=== PATIENT | male | born 1970 | race Caucasian/White ===

== ENCOUNTER 2016-04-16 02:02 | Emergency (ER) | payer OTHER ==
[~2016-04-16] VITALS: Ht 180.3 cm; Wt 104.5 kg
[~2016-04-16 02:02] MED LIST: ASPIR 8181 M1 PO; ASPIR-TRIN325 M1 PO; DEPAKOTE500 MG PO; DILANTIN BRAND100 MG PO; DILANTIN100 MG PO; INDOCIN25 MG PO; OMEPRAZOLE40 M1 PO; OMNICEF300 M1 PO; OXYCODONE HCL5 MG PO; PREDNISONE10 M1 PO; PREDNISONE50 MG PO; TESSALON PERLE100 MG PO; VICODIN ES 71 TABLET PO; VITAMIN D5000 INTUN PO; ZOLOFT100 MG; ZOLOFT100 MG PO; Zoloft PO
[2016-04-16] MEDS ORDERED: NORCO 5/3251 TABLET PO (03:28)
[2016-04-16 04:02] VITALS: BP 123/74
== END 2016-04-16 04:15 | disposition home or self-care (01) ==
LOC: EME 02:02
PROC: 0HQ0XZZ Repair Scalp Skin, External Approach (ICD-10-PCS; principal; 2016-04-16)
DX: S09.90XA Unspecified injury of head, initial encounter (principal); S01.01XA Laceration without foreign body of scalp, initial encounter; S40.011A Contusion of right shoulder, initial encounter; W00.0XXA Fall on same level due to ice and snow, initial encounter
CPT/HCPCS: 70450; 72125; 73030; 73080; 73090; 99281; 99284

== ENCOUNTER 2017-08-18 16:37 | Observation (INO) | payer OTHER ==
[~2017-08-18] VITALS: Ht 182.9 cm; Wt 107.2 kg
[~2017-08-18 16:37] MED LIST changes: +NORCO 5/3251 TABLET PO
[2017-08-18 17:35] LABS: BASOPHIL (%) 0.4 % (0-1); EOSINOPHIL (%) 1.2 % (0-5); EOSINOPHIL COUNT 0.1 K/uL (0-0.3); HEMATOCRIT 40.8 % (38.0-50.0); HEMOGLOBIN 14.4 G/DL (12.5-16.6); IMMATURE GRANULOCYTE (%) 0.3 % (0.0-0.7); LYMPHOCYTE (%) 14.7 % (15-42); LYMPHOCYTE COUNT 1.5 K/uL (1.0-2.8); MCH 31.9 PG (29.0-34.0); MCHC 35.3 G/DL (30.0-36.0); MCV 90.5 FL (86-99); MONOCYTE (%) 5.8 % (3-12); MONOCYTE COUNT 0.6 K/uL (0-0.8); NEUTROPHIL (%) 77.6 % (45-76); NEUTROPHIL COUNT 7.8 K/uL (1.8-6.4); PLATELET COUNT 167 K/uL (156-360); RBC DIS.WIDTH-CV 12.1 % (11.8-14.6); RED BLOOD COUNT 4.51 M/uL (4.00-5.50)
[2017-08-18 17:43] LABS: ALBUMIN 4.3 g/dL (3.2-4.8); CHLORIDE 104 mEq/L (99-109)
[2017-08-18 17:44] LABS: POTASSIUM 3.6 mEq/L (3.7-5.4); SODIUM 139 mEq/L (136-147)
[2017-08-18 17:46] LABS: GLUCOSE 91 mg/dL (70-99); TOTAL PROTEIN 7.2 g/dL (6.4-8.3)
[2017-08-18 17:48] LABS: TOTAL BILIRUBIN 0.4 mg/dL (0.0-1.0)
[2017-08-18 17:49] LABS: ALKALINE PHOSPHATASE 157 IU/L (3-129); CREATININE 0.7 mg/dL (0.6-1.3); GFR ESTIMATE (CALCULATED) > 59 mL/min/ (58.99-99999)
[2017-08-18 17:51] LABS: AST (GOT) 20 IU/L (2-34); UREA NITROGEN (BUN) 11 mg/dL (9-23)
[2017-08-18 17:52] LABS: ALT (GPT) 40 IU/L (3-49); CREATINE KINASE 216 IU/L (1-294); TOTAL CK 216 IU/L (1-294)
[2017-08-18 17:58] LABS: TROP-I INTERPRETATION NEGATIVE; TROPONIN-I < 0.01 ng/mL (0.0-0.30)
[2017-08-18 17:59] LABS: CKMB RELATIVE INDEX 0.9 (0.0-3.9)
[2017-08-18 18:41] LABS: VALPROIC ACID (DEPAKOTE) 20.3 MCG/ML (50-100)
[2017-08-18 18:54] LABS: D-DIMER ELISA < 150.00 ng/mLDDU (<230)
[2017-08-18] MEDS ORDERED: FLUOXETINE HCL20 MG PO (19:13)
[2017-08-18] MEDS ORDERED: VITAMIN D10000 UNIT PO (19:14)
[2017-08-18] MEDS ORDERED: PERCOCET 10/1 TABLET PO (19:14)
[2017-08-18] MEDS ORDERED: OMEPRAZOLE40 M1 PO (19:14)
[2017-08-18] MEDS ORDERED: SKELAXIN800 MG PO (19:14)
[2017-08-18] MEDS ORDERED: ZOLOFT100 MG PO (19:14)
[2017-08-18] MEDS ORDERED: ADULT ASPIRIN R81 MG PO (19:14)
[2017-08-18 21:52] VITALS: BP 120/65
[2017-08-19 01:01] LABS: TROP-I INTERPRETATION NEGATIVE; TROPONIN-I 0.03 ng/mL (0.0-0.30)
[2017-08-19 04:14] VITALS: BP 125/72
[2017-08-19 05:23] LABS: TROP-I INTERPRETATION NEGATIVE; TROPONIN-I 0.04 ng/mL (0.0-0.30)
[2017-08-19 05:37] LABS: HDL CHOLESTEROL 25 MG/DL (Desirable>=40); LDL CHOLESTEROL 170 mg/dL (Desirable<100); NON-HDL CHOLESTEROL 213 mg/dL (Desirable<160); TOTAL CHOLESTEROL 238 mg/dL (Desirable<200); TRIGLYCERIDES 217 MG/DL (Normal: <150)
[2017-08-19 07:56] VITALS: BP 110/63
[2017-08-19 11:25] VITALS: BP 125/70
[2017-08-19 15:31] VITALS: BP 130/80
[2017-08-19] MEDS ORDERED: LIPITOR40 MG PO (17:22)
[2017-08-19] MEDS ORDERED: DILANTIN100 MG PO (17:22)
== END 2017-08-19 19:52 | disposition home or self-care (01) ==
LOC: EME 16:37 → 4SOUTH 19:37 → EDOF 19:37 → ENRESERV 19:50 → 4SOUTH 21:50 → ENRESERV 08-19 15:58 → 4SOUTH 08-19 16:08
PROVIDERS: Emergency Medicine; Physician Assistant Medical
DX: R55 Syncope and collapse (principal); R07.89 Other chest pain; E87.6 Hypokalemia; R94.31 Abnormal electrocardiogram [ECG] [EKG]; G40.409 Other generalized epilepsy and epileptic syndromes, not intractable, without status epilepticus; Z82.49 Family history of ischemic heart disease and other diseases of the circulatory system; G89.29 Other chronic pain; F17.210 Nicotine dependence, cigarettes, uncomplicated; Z86.19 Personal history of other infectious and parasitic diseases; Z79.82 Long term (current) use of aspirin; E66.9 Obesity, unspecified; Z68.32 Body mass index [BMI] 32.0-32.9, adult; Z83.3 Family history of diabetes mellitus; Z81.1 Family history of alcohol abuse and dependence
CPT/HCPCS: 70450; 71046; 80053; 80061; 80164; 80185; 82550; 82553; 84484; 85025; 85379; 93005; 99281; 99285; G0378; J1650; J3480